=== PATIENT | female | born 1945 | race Caucasian/White ===

== ENCOUNTER 2021-11-15 18:04 | Inpatient (IN) ==
[2021-11-15] MEDS ORDERED: fentaNYL 100 mcg/2 ml 50 MCG/ML VIAL IV SLOW PU ONE ×2 (20:17→20:19)
[2021-11-15] MEDS ORDERED: Propofol 10 MG/ML 20 ML BTL IV PUSH ONE (20:18)
[2021-11-15] MEDS ORDERED: Ondansetron 4 mg VIAL 2 MG/ML 2 ml VIAL IV ONE (20:19)
[2021-11-15] MEDS ORDERED: Naloxone 4 mg VIAL 0.4 MG/ML 10 ml VIAL (4 mg) ONE (20:22)
[2021-11-15 22:07] LABS: ABS Eosinophils 0.1 10^3/ul (0-0.6); ABS Lymphocytes 2.6 10^3/ul (1.0-4.8); ABS Monocytes 0.8 10^3/ul (0-0.8); ABS Neutrophils 8.9 10^3/ul (1.5-7.7); Eosinophil % 1.1 %; Hematocrit 40 % (35-47); Hemoglobin 13.2 g/dL (12.0-16.0); Mean Corpuscular HGB Conc 33 g/dL (31-36); Mean Corpuscular Hemoglobin 28 pg (27-31); Mean Corpuscular Volume 85 fL (80-97); Nucleated Red Blood Cells % 0.1; Platelet Count 285 10^3/uL (150-450); Red Blood Count 4.76 10^6 /uL (3.70-4.87); Red Cell Distribution Width 13 % (10-15); White Blood Count 12.5 10^3/uL (3.5-10.8)
[2021-11-15 22:15] LABS: Activated Partial Thrombo Time 27.5 seconds (26.0-38.0); INR 1.27 (0.89-1.11)
[2021-11-15] MEDS ORDERED: Nebivolol 5 mg TAB (NF) PO ONE (22:35)
[2021-11-15 22:40] LABS: Urine Appearance Clear; Urine Bilirubin Negative (Negative); Urine Blood Trace (Lysed) (Negative); Urine Color Yellow; Urine Glucose Negative (Negative); Urine Ketones 1+ (15mg/dL) (Negative); Urine Nitrite Negative (Negative); Urine Protein Negative (Negative); Urine Specific Gravity 1.015 (1.005-1.030); Urine Urobilinogen 0.2 (Negative) (Negative); Urine pH 6.5 (5.0-9.0)
[2021-11-15] MEDS ORDERED: Morphine 4 MG/ML VIAL (1 ml) IV ONE (22:42)
[2021-11-15 22:45] LABS: Albumin 3.7 g/dL (3.2-5.2); Albumin/Globulin Ratio 1.9 (1-3); Calcium 7.6 mg/dL (8.6-10.3); Potassium 3.5 mmol/L (3.5-5.0); Total Bilirubin 0.4 mg/dL (0.2-1.0); Total Protein 5.7 g/dL (6.4-8.9); eGFR CKD-EPI 91.8 (>60)
[2021-11-15] MEDS ORDERED: Dextrose 50% Syringe 50 ml 25 GM/50 ML SYRINGE IV PUSH PRN (22:59)
[2021-11-15] MEDS ORDERED: Nebivolol 2.5 mg TAB (NF) PO ONE (23:00)
[2021-11-15] MEDS ORDERED: Fluticasone NASAL SPRAY 50MCG 16 gm SPRAY BTL INTRANASAL PRN (23:01)
[2021-11-15] MEDS ORDERED: Al Hydrox/Mg Hydrox/Simet LIQ 30 ML UDC PO PRN (23:06)
[2021-11-16] MEDS ORDERED: Calcium Gluconate 2 GM in NS 0.9% 100 ml BAG 100 ML IVPB ONE (00:08)
[2021-11-16] MEDS: Morphine 2 MG/ML SYRINGE IV PRN ×4 (02:15→10:59)
[2021-11-16] MEDS: Acetaminophen IV 1 GM/100ML 1,000 MG/100 ML BAG IV PRN ×2 (02:26→11:01)
[2021-11-16] MEDS: CMC:Nebivolol 2.5 mg TAB (NF) PO SCH (08:55)
[2021-11-16] MEDS: Lactated Ringers 1000 ml BAG 1,000 ML IV SCH ×2 (12:47→21:08)
[2021-11-16] MEDS ORDERED: ceFAZolin 2 GM in NS PREMIX 2 GM/100 ML BAG IVPB ONE ×2 (16:00→16:38)
[2021-11-16] MEDS ORDERED: Midazolam 2 mg/2 ml VIAL 1 mg/ml 2 ml VIAL (2 mg) ONE ×2 (16:03→16:16)
[2021-11-16] MEDS ORDERED: fentaNYL 100 mcg/2 ml 50 MCG/ML VIAL ONE ×2 (16:03→16:16)
[2021-11-16] MEDS ORDERED: Dexmedetomidine 200 mcg/2 ml 2 ml VIAL (200 mcg) ONE (16:05)
[2021-11-16] MEDS ORDERED: Ondansetron 4 mg VIAL 2 MG/ML 2 ml VIAL ONE (16:16)
[2021-11-16] MEDS ORDERED: Propofol 10 MG/ML 20 ML BTL ONE (16:16)
[2021-11-16] MEDS ORDERED: Dexamethasone IV 4 MG/ML VIAL 1 ml VIAL ONE (16:16)
[2021-11-16] MEDS ORDERED: Lidocaine 2% PF 5 ML VIAL ONE (16:16)
[2021-11-16] MEDS ORDERED: Naloxone 0.4 mg VIAL 0.4 mg/ml 1 ml VIAL IV PRN (17:50)
[2021-11-16] MEDS ORDERED: fentaNYL 100 mcg/2 ml 50 MCG/ML VIAL IV PRN (17:50)
[2021-11-16] MEDS: Heparin 5000 UNITS/ML 1 mL VIAL SUBCUT SCH (23:30)
[2021-11-17] MEDS: ceFAZolin 1 GM X 3 DOSES POST-OP Q8H (AddVan) IVPB SCH ×3 (02:43→17:56)
[2021-11-17 05:19] LABS: ABS Lymphocytes 1.2 10^3/ul (1.0-4.8); ABS Monocytes 0.5 10^3/ul (0-0.8); ABS Neutrophils 7.1 10^3/ul (1.5-7.7); Hematocrit 36 % (35-47); Hemoglobin 12.4 g/dL (12.0-16.0); Lymphocyte % 13.4 %; Mean Corpuscular HGB Conc 34 g/dL (31-36); Mean Corpuscular Hemoglobin 29 pg (27-31); Mean Corpuscular Volume 85 fL (80-97); Mean Platelet Volume 8.1 fL (7.4-10.4); Platelet Count 217 10^3/uL (150-450); Red Blood Count 4.25 10^6 /uL (3.70-4.87); Red Cell Distribution Width 13 % (10-15); White Blood Count 8.8 10^3/uL (3.5-10.8)
[2021-11-17] MEDS: Heparin 5000 UNITS/ML 1 mL VIAL SUBCUT SCH (05:50)
[2021-11-17 06:13] LABS: Calcium 8.3 mg/dL (8.6-10.3); Magnesium 1.7 mg/dL (1.9-2.7); Potassium 3.5 mmol/L (3.5-5.0); eGFR CKD-EPI 97.3 (>60)
[2021-11-17] MEDS ORDERED: Magnesium Sulfate 2 gm BAG 2 GM/50 ML BAG IVPB ONE (07:22)
[2021-11-17] MEDS: CMC:Nebivolol 2.5 mg TAB (NF) PO SCH (08:59)
[2021-11-17] MEDS: Enoxaparin 40 MG/0.4 ML SYR SUBCUT SCH ×2 (08:59→12:17)
[2021-11-17] MEDS ORDERED: Enoxaparin 40 MG/0.4 ML SYR SUBCUT SCH (14:00)
[2021-11-17 17:11] LABS: Calcium 9.2 mg/dL (8.6-10.3); Potassium 3.2 mmol/L (3.5-5.0); eGFR CKD-EPI 91.8 (>60)
[2021-11-17] MEDS ORDERED: Potassium Chlor 20 meq TAB.ER PO ONE (17:16)
[2021-11-17 17:41] LABS: Magnesium 2.1 mg/dL (1.9-2.7)
[2021-11-17] MEDS: Morphine 2 MG/ML SYRINGE IV PRN ×2 (19:49→21:43)
[2021-11-18] MEDS: Morphine 2 MG/ML SYRINGE IV PRN ×2 (01:40→05:43)
[2021-11-18 06:10] LABS: ABS Eosinophils 0.1 10^3/ul (0-0.6); ABS Lymphocytes 2.3 10^3/ul (1.0-4.8); ABS Monocytes 0.8 10^3/ul (0-0.8); Eosinophil % 0.9 %; Hematocrit 36 % (35-47); Hemoglobin 11.9 g/dL (12.0-16.0); Lymphocyte % 22.8 %; Mean Corpuscular HGB Conc 33 g/dL (31-36); Mean Corpuscular Hemoglobin 29 pg (27-31); Mean Corpuscular Volume 85 fL (80-97); Mean Platelet Volume 8.4 fL (7.4-10.4); Nucleated Red Blood Cells % 0.1; Platelet Count 265 10^3/uL (150-450); Red Blood Count 4.16 10^6 /uL (3.70-4.87); Red Cell Distribution Width 13 % (10-15); White Blood Count 10.3 10^3/uL (3.5-10.8)
[2021-11-18 07:07] LABS: Calcium 8.9 mg/dL (8.6-10.3); Magnesium 2.1 mg/dL (1.9-2.7); Potassium 3.6 mmol/L (3.5-5.0); eGFR CKD-EPI 93.9 (>60)
[2021-11-18] MEDS: CMC:Nebivolol 2.5 mg TAB (NF) PO SCH (08:27)
[2021-11-18 10:58] VITALS: BP 144/69
== END 2021-11-18 14:10 | disposition home or self-care (01) | DRG 493 ==
LOC: EDHOLD 18:04 → ED 18:04 → SUATTDRO 22:57 → SSU 11-16 06:58 → SUATTDRO 11-17 17:02
PROVIDERS: ADMIT Internal Medicine; ATTEND Hospitalist